=== PATIENT | male | born 1945 | race Caucasian/White ===

== ENCOUNTER 2018-03-15 18:38 | Emergency (ER) | payer MEDICARE ==
[~2018-03-15] VITALS: Ht 188 cm; Wt 93.4 kg
[2018-03-15 19:34] VITALS: BP 126/69
== END 2018-03-15 19:35 | disposition home or self-care (01) ==
LOC: M.ERS 18:38
DX: S61.212A Laceration without foreign body of right middle finger without damage to nail, initial encounter (principal); I10 Essential (primary) hypertension; W29.3XXA Contact with powered garden and outdoor hand tools and machinery, initial encounter; Y93.89 Activity, other specified; Y92.89 Other specified places as the place of occurrence of the external cause; Y99.8 Other external cause status